=== PATIENT | male | born 1995 | race Caucasian/White ===

== ENCOUNTER 2019-04-28 12:32 | Observation (INO) | payer OTHER ==
[~2019-04-28 12:32] MED LIST: ROCURONIUM BROMIDE INJ 50 MG/5 ML VIAL IV ONE; SUCCINYLCHOLINE CHLORIDE INJ 200 MG/10 ML VIAL ONE
[2019-04-28 13:10] LABS: APPEARANCE,URINE CLEAR; BILIRUBIN,URINE NEGATIVE (NEGATIVE); COLOR,URINE YELLOW; GLUCOSE, URINE NEGATIVE (NEGATIVE); KETONES,URINE NEGATIVE (NEGATIVE); LEUKOCYTE ESTERASE,URINE NEGATIVE (NEGATIVE); NITRITE,URINE NEGATIVE (NEGATIVE); PROTEIN,URINE NEGATIVE (NEGATIVE); URINE SPECIFIC GRAVITY 1.019; UROBILINOGEN,URINE NEGATIVE mg/dL (<2.0)
[2019-04-28] MEDS ORDERED: ONDANSETRON HCL INJ/PF 4 MG/2 ML SDV IV ONE (13:12)
[2019-04-28] MEDS ORDERED: FENTANYL CITRATE INJ/PF 100 MCG/2 ML AMPUL IV ONE (13:12)
--- NOTE | 2019-04-28 13:14 | ER Document Report ---
ED Medical Screen (RME) - General Chief Complaint: Flank Pain Stated Complaint: RIGHT SIDE PAIN Time Seen by Provider: 04/28/19 13:07 Notes: Patient is a 23-year-old male presents to the emergency department for right lower abdominal pain. Patient voices he has had intermittent pain for the last 4 days. Patient's denying any fever but is admitting to some generalized nausea. Patient voices he also feels as he may be constipated. Patient states he has no dysuria but does have urinary frequency. GENERAL: Alert, interacts well. No acute distress. ABDOMEN: Soft, generalized tenderness noted right lower quadrant, suprapubic, left lower quadrant. Non-distended. Bowel sounds present in all 4 quadrants. BACK: no cervical, thoracic, lumbar midline tenderness. No saddle anesthesia, normal distal neurovascular exam. No CVA tenderness noted bilaterally. I have greeted and performed a rapid initial assessment of this patient. A comprehensive ED assessment and evaluation of the patient, analysis of test results and completion of the medical decision making process will be conducted by additional ED providers. I have specifically instructed the patient or family members with the patient to immediately return to any nursing staff should anything change in the patient's condition or with their chief complaint. This medical record was dictated with voice recognizing software. There may be grammatical, syntax errors that are unintended. TRAVEL OUTSIDE OF THE [place] IN LAST 30 DAYS: No - Related Data Allergies/Adverse Reactions: No Known Allergies Allergy (Verified 04/28/19 13:05) Past Medical History - Social History Chew tobacco use (# tins/day): No Frequency of alcohol use: Occasional Drug Abuse: None Physical Exam - Vital signs Vitals: Temp Pulse BP Pulse Ox 98.6 F 57 L 129/65 H 99 04/28/19 12:36 04/28/19 12:36 04/28/19 12:36 04/28/19 12:36 Course - Vital Signs Vital signs: Temp Pulse Resp BP Pulse Ox 98.6 F 57 L 129/65 H 99 04/28/19 12:36 04/28/19 12:36 04/28/19 12:36 04/28/19 12:36
[2019-04-28 13:51] LABS: ABSOLUTE EOSINOPHILS # (AUTO) 0.2 10^3/uL (0.0-0.6); ABSOLUTE LYMPHOCYTES (AUTO) 1.4 10^3/uL (0.5-4.7); ABSOLUTE MONOCYTES (AUTO) 1.5 10^3/uL (0.1-1.4); BASOPHILS % (AUTO) 0.3 % (0-2); EOSINOPHILS % (AUTO) 1.2 % (0-6); HEMATOCRIT 40.7 % (37.9-51.0); HEMOGLOBIN 13.8 g/dL (13.5-17.0); LYMPHOCYTES % (AUTO) 10.1 % (13-45); MEAN CORPUSCULAR HEMOGLOBIN 30.2 pg (27.0-33.4); MEAN CORPUSCULAR VOLUME 89 fl (80-97); MONOCYTES % (AUTO) 10.5 % (3-13); PLATELET COUNT 239 10^3/uL (150-450); RED BLOOD COUNT 4.57 10^6/uL (4.35-5.55); RED CELL DISTRIBUTION WIDTH 13.3 % (11.5-14.0); SEGMENTED NEUTROPHILS % (AUTO) 77.9 % (42-78); TOTAL CELLS COUNTED % (AUTO) 100 %; WHITE BLOOD COUNT 14.2 10^3/uL (4.0-10.5)
[2019-04-28 14:05] LABS: ALBUMIN 4.6 g/dL (3.5-5.0); ALKALINE PHOSPHATASE 63 U/L (38-126); ANION GAP 10 (5-19); ASPARTATE AMINO TRANSFERASE 65 U/L (17-59); BILIRUBIN,DIRECT 0.1 mg/dL (0.0-0.4); BILIRUBIN,TOTAL 0.6 mg/dL (0.2-1.3); BLOOD UREA NITROGEN 22 mg/dL (7-20); CALCIUM 9.9 mg/dL (8.4-10.2); CARBON DIOXIDE 28 mmol/L (22-30); CHLORIDE 102 mmol/L (98-107); GLUCOSE 92 mg/dL (75-110); POTASSIUM 4.3 mmol/L (3.6-5.0); TOTAL PROTEIN 7.8 g/dL (6.3-8.2)
[2019-04-28] MEDS ORDERED: NORMAL SALINE 1000 ML 1,000 ML IV ONE (14:05)
--- NOTE | 2019-04-28 15:15 | RADIOLOGY REPORT (SQ) ---
EXAM DESCRIPTION: CT ABD/PELVIS WITH IV ONLY COMPLETED DATE/TIME: 04/28/2019 2:42 pm REASON FOR STUDY: RLQ pain COMPARISON: None. TECHNIQUE: CT scan of the abdomen and pelvis performed using helical scanning technique with dynamic intravenous contrast injection. No oral contrast. Images reviewed with lung, soft tissue, and bone windows. Reconstructed coronal and sagittal MPR images reviewed. Delayed images for evaluation of the urinary system also acquired. All images stored on PACS. All CT scanners at this facility use dose modulation, iterative reconstruction, and/or weight based d osing when appropriate to reduce radiation dose to as low as reasonably achievable (ALARA). [facility]: Dose Right [facility]: CareDose [facility]: Dose Right [facility]: Teradose 4D [facility]: PlaceSpeak CONTRAST TYPE AND DOSE: contrast/concentration: Isovue 350.00 mg/ml; Total Contrast Delivered: 100.0 ml; Total Saline Delivered: 45.0 ml RENAL FUNCTION: BUN 22 creatinine 0.96 RADIATION DOSE: CT Rad equipment meets quality standard of care and radiation dose reduction techniq ues were employed. CTDIvol: 11.0 - 14.9 mGy. DLP: 1434 mGy-cm.. LIMITATIONS: None. FINDINGS: LOWER CHEST: No significant findings. No nodules or infiltrates. LIVER: Normal size. No masses. No dilated ducts. SPLEEN: Normal size. No focal lesions. PANCREAS: No masses. No significant calcifications. No adjacent inflammation or peripancreatic fluid collections. Pancreatic duct not dilated. GALLBLADDER: No identified stones by CT criteria. No inflammatory changes to suggest cholecystitis. ADRENAL GLANDS: No significant masses or asymmetry. RIGHT KIDNEY AND URETER: No solid masses. No significant calcifications. No hydronephrosis or hyd roureter. LEFT KIDNEY AND URETER: No solid masses. No significant calcifications. No hydronephrosis or hydr oureter. AORTA AND VESSELS: No aneurysm. No dissection. Renal arteries, SMA, celiac without stenosis. RETROPERITONEUM: No retroperitoneal adenopathy, hemorrhage or masses. BOWEL AND PERITONEAL CAVITY: No masses or inflammatory changes. No free fluid or peritoneal masses. APPENDIX: The appendix is thickened to a maximum of 21 mm. There is periappendiceal stranding. No a bscess is seen. PELVIS: No mass. No free fluid. Normal bladder. ABDOMINAL WALL: No masses. No hernias. BONES: No significant or acute findings. OTHER: No other significant finding. IMPRESSION: Appendicitis. No abscess is seen. TECHNICAL DOCUMENTATION: JOB ID: [id number] Quality ID # [id number]: Final reports with documentation of one or more dose reduction techniques (e.g., Au tomated exposure control, adjustment of the mA and/or kV according to patient size, use of iterative reconstruction technique) 2010 [employer]- All Rights Reserved Reading location - IP/workstation name: [email or web address]
[2019-04-28 15:37] LABS: CHLAM PCR NOT DETECTED (NOT DETECT)
[2019-04-28] MEDS ORDERED: CEFOXITIN INJ 2 GM VIAL IV ONE (15:37)
--- NOTE | 2019-04-28 15:43 | ER Document Report ---
Entered by ALIX MONTES SCRIBE 04/28/19 1520 Acting as scribe for:JEANNA CASTRO IV, MD ED GI/ - General Chief Complaint: Lower Abdominal Pain Stated Complaint: RIGHT SIDE PAIN Time Seen by Provider: 04/28/19 13:07 Mode of Arrival: Ambulatory Information source: Patient Notes: This 23-year-old male patient presents to the emergency department today with complaints of a 4-day history of right lower quadrant abdominal pain. Patient states that when the pain first began it was a mild discomfort and he "kind of just felt like he needed to pass gas or poop", describing the pain as a pressure. Patient states that he went to see a client finance analyst who asked him if he had made any recent dietary changes. Patient states he told him that he had recently changed to a keto diet and the client finance analyst attributed his symptoms to the diet change. Patient states this morning when he woke up his abdominal pain was much more severe, still feeling like a pressure sensation with very sharp pains as well. Patient states the best way he can describe the pain as if "he got kick ed in the gut". Of note, the last food/drink that the patient consumed was at 10:30am this morning, stating he ate ham and eggs. Pertinent PMHx/PSHx: none PCP: [employer] TRAVEL OUTSIDE OF THE [place] IN LAST 30 DAYS: No - Related Data Allergies/Adverse Reactions: No Known Allergies Allergy (Verified 04/28/19 13:05) Past Medical History - General Information source: Patient - Social History Smoking Status: Never Smoker Cigarette use (# per day): No Chew tobacco use (# tins/day): No Frequency of alcohol use: Occasional Drug Abuse: None Occupation: [employer] [place] Lives with: Spouse/Significant other Family History: Reviewed & Not Pertinent Patient has suicidal ideation: No Patient has homicidal ideation: No Review of Systems - Review of Systems Constitutional: No symptoms reported EENT: No symptoms reported Cardiovascular: No symptoms reported Respiratory: No symptoms reported Gastrointestinal: See HPI, Abdominal pain, Nausea. denies: Vomiting Genitourinary: See HPI, Frequency Male Genitourinary: No symptoms reported Musculoskeletal: No symptoms reported Skin: No symptoms reported Hematologic/Lymphatic: No symptoms reported Neurological/Psychological: No symptoms reported -: Yes All other systems reviewed and negative Physical Exam - Vital signs Vitals: Temp Pulse BP Pulse Ox 98.6 F 57 L 129/65 H 99 04/28/19 12:36 04/28/19 12:36 04/28/19 12:36 04/28/19 12:36 - Notes Notes: Physical Exam: General: Alert, appears uncomfortable. HEENT: Normocephalic. Atraumatic. PERRL. Extraocular movements intact. Or opharynx clear. Neck: Supple. Non-tender. Respiratory: No respiratory distress. Clear and equal breath sounds bilaterally. Cardiovascular: Regular rate and rhythm. Abdominal: Right lower quadrant tenderness with palpation. Palpation of the left lower quadrant causes discomfort in the right lower quadrant. Positive rebound tenderness. No distension. Decreased Bowel Sounds. Back: No gross abnormalities. Extremities: Moves all four extremities. Upper extremities: Normal inspection. Normal ROM. Lower extremities: Normal inspection. No edema. Normal ROM. Neurological: Normal cognition. AAOx4. Normal speech. Psychological: Normal affect. Normal Mood. Skin: Warm. Dry. Normal color. Course - Vital Signs Vital signs: Temp Pulse Resp BP Pulse Ox 98.4 F 80 16 139/52 H 100 04/29/19 00:30 04/29/19 00:30 04/29/19 00:30 04/29/19 00:30 04/29/19 00:30 - Laboratory Result Diagrams: 04/28/19 13:38 04/28/19 13:38 Laboratory results interpreted by me: 04/28/19 04/28/19 13:38 13:38 WBC 14.2 H Lymph % (Auto) 10.1 L Absolute Neuts (auto) 11.0 H Absolute Monos (auto) 1.5 H BUN 22 H AST 65 H - Diagnostic Test Radiology reviewed: Reports reviewed Discharge - Discharge Clinical Impression: Appendicitis Qualifiers: Appendicitis type: acute appendicitis Acute appendicitis type: unspecified acute appendicitis type Qualified Code(s): K35.80 - Unspecified acute appendicitis Disposition: ADMITTED OBSERVATION Admitting Provider: Surgicalist Unit Admitted: Surgical Floor I personally performed the services described in the documentation, reviewed and edited the documentation which was dictated to the scribe in my presence, and it accurately records my words and actions.
[2019-04-28] MEDS ORDERED: BUPIVACAINE HCL 0.25 % INJ/PF (2.5 MG/1 ML) 30 ML VIAL ONE (16:11)
[2019-04-28] MEDS ORDERED: ONDANSETRON HCL INJ/PF 4 MG/2 ML SDV ONE ×2 (16:12→18:52)
[2019-04-28] MEDS ORDERED: FENTANYL CITRATE INJ/PF 100 MCG/2 ML AMPUL ONE ×2 (16:12→18:52)
[2019-04-28] MEDS ORDERED: DEXAMETHASONE SOD PHOSPHATE INJ 4 MG/1 ML VIAL ONE (16:12)
[2019-04-28] MEDS ORDERED: MIDAZOLAM 2 MG/2 ML INJ ONE (16:12)
[2019-04-28] MEDS ORDERED: MORPHINE SULFATE 10 MG/ML INJ ONE (16:12)
[2019-04-28] MEDS ORDERED: PROPOFOL INJ 200 MG/20 ML VIAL IV ONE (16:13)
--- NOTE | 2019-04-28 16:16 | PDOC H&P ---
History of Present Illness Patient complains of: Abdominal pain History of Present Illness: CHANNING DANIELLE is a 23 year old male in otherwise excellent health up until about 5 days ago when he began to have a headache followed by some abdominal discomfort. Over the ensuing days the pain became localized in the right lower quadrant with now pain migrating toward the umbilicus. The pain has become worse markedly increasing in pain in the last 24 hours. Patient has had some nausea. No emesis. No fevers or chills. Some loose bowel movements. No blood per rectum. Patient notes that the pain is worsened with any type of jostling motion. He denies any prior history of this sort of abdominal pain. No recent unexplained weight loss. He had been feeling well up until a few days ago. Past Medical History Medical History: None Cardiac Medical History: Reports: None Pulmonary Medical History: Reports: None EENT Medical History: Reports: None Neurological Medical History: Reports: None Endocrine Medical History: Reports: None Renal/ Medical History: Reports: None Malignancy Medical History: Reports: None GI Medical History: Reports: None Musculoskeltal Medical History: Reports: None Skin Medical History: Reports: None Psychiatric Medical History: Reports: None Traumatic Medical History: Reports: None Hematology: Reports: None Infectious Medical History: Reports: None Past Surgical History Past Surgical History: Reports: None Social History Lives with: Spouse/Significant other Smoking Status: Never Smoker Electronic Cigarette use?: No Frequency of Alcohol Use: Occasional Hx Recreational Drug Use: No Family History Parental Family History Reviewed: Yes - Father with thyroid cancer. Mother with hypertension Children Family History Reviewed: Yes Sibling(s) Family History Reviewed.: Yes Medication/Allergy Home Medications: No Home Medications 04/28/19 Allergies/Adverse Reactions: No Known Allergies Allergy (Verified 04/28/19 13:05) Review of Systems All systems: reviewed and no additional remarkable complaints except as stated Constitutional: PRESENT: as per HPI Gastrointestinal: PRESENT: as per HPI Physical Exam Vital Signs: Temp Pulse Resp BP Pulse Ox 98.7 F 60 16 128/65 H 99 04/28/19 16:05 04/28/19 16:05 04/28/19 16:05 04/28/19 16:05 04/28/19 16:05 Intake & Output 04/27/19 04/28/19 04/29/19 06:59 06:59 06:59 Intake Total 1000 Balance 1000 Weight 108.2 kg General appearance: PRESENT: no acute distress, cooperative Eye exam: PRESENT: conjunctiva pink Respiratory exam: PRESENT: clear to auscultation barry Cardiovascular exam: PRESENT: RRR GI/Abdominal exam: PRESENT: other - Soft, nondistended, marked tenderness to palpation in the right lower quadrant with guarding and rebound. Tenderness also in the mid lower abdomen. Positive Rovsing sign. Extremities exam: PRESENT: other - No swelling and no tenderness Neurological exam: PRESENT: alert, awake Psychiatric exam: PRESENT: appropriate affect Skin exam: PRESENT: warm Results Laboratory Results: 04/28/19 13:38 04/28/19 13:38 04/28/19 04/28/19 04/28/19 12:45 13:38 13:38 WBC 14.2 H RBC 4.57 Hgb 13.8 Hct 40.7 MCV 89 MCH 30.2 MCHC 34.0 RDW 13.3 Plt Count 239 Seg Neutrophils % 77.9 Sodium 139.7 Potassium 4.3 Chloride 102 Carbon Dioxide 28 Anion Gap 10 BUN 22 H Creatinine 0.96 Est GFR ( Amer) > 60 Glucose 92 Calcium 9.9 Total Bilirubin 0.6 AST 65 H Alkaline Phosphatase 63 Total Protein 7.8 Albumin 4.6 Lipase 32.4 Urine Color YELLOW Urine Appearance CLEAR Urine pH 5.0 Ur Specific [place] 1.019 Urine Protein NEGATIVE Urine Glucose (UA) NEGATIVE Urine Ketones NEGATIVE Urine Blood NEGATIVE Urine Nitrite NEGATIVE Ur Leukocyte Esterase NEGATIVE Urine WBC (Auto) 0 Urine RBC (Auto) 1 Impressions: Abdomen/Pelvis CT 04/28/19 13:53 IMPRESSION: Appendicitis. No abscess is seen. Assessment & Plan - Diagnosis (1) Appendicitis Qualifiers: Appendicitis type: acute appendicitis Acute appendicitis type: with localized peritonitis Is this a current diagnosis for this admission?: Yes Plan: Likely a perforated in light of his several day of symptoms and peritoneal signs in the right lower quadrant in the mid lower abdomen. We will plan laparoscopic appendectomy possible open appendectomy. I have discussed with the patient the risk and benefits of the surgery including risk of conversion to a larger incision, infection, bleeding, adjacent structure injury, mistaken diagnosis, stump leak, postoperative abscess. Patient understands and agrees to proceed.
[2019-04-28] MEDS ORDERED: PROMETHAZINE HCL INJ 25 MG/1 ML VIAL IV PRN ×2 (17:03)
[2019-04-28] MEDS ORDERED: MEPERIDINE HCL/PF INJ 25 MG/1 ML DISP.SYRIN IV PRN (17:03)
[2019-04-28] MEDS ORDERED: FENTANYL CITRATE INJ/PF 100 MCG/2 ML AMPUL IV PRN ×3 (17:03)
[2019-04-28] MEDS ORDERED: MORPHINE SULFATE 10 MG/ML INJ IV PRN ×2 (17:03→18:42)
[2019-04-28] MEDS ORDERED: DIPHENHYDRAMINE HCL 50 MG/ML VIAL IV PRN (17:03)
[2019-04-28] MEDS ORDERED: NORMAL SALINE 1000 ML 1,000 ML IV PRN (18:35)
[2019-04-28] MEDS ORDERED: DEXTROSE 50%-WATER 25 GM/50 ML DISP.SYRIN IV PRN ×2 (18:42)
[2019-04-28] MEDS ORDERED: DEXTROSE 40% GEL 15 GM TUBE PO PRN ×2 (18:42)
[2019-04-28] MEDS ORDERED: GLUCAGON,HUMAN RECOMB 1 MG INJ SUBCUT PRN (18:42)
[2019-04-28] MEDS ORDERED: SCOPOLAMINE HYDROBROMIDE 1.5 MG PATCH.TD72 ONE (19:09)
--- NOTE | 2019-04-28 20:38 | Operative Report ---
Operative Report DATE OF SURGERY: 04/28/19 PREOPERATIVE DIAGNOSIS: Appendicitis POSTOPERATIVE DIAGNOSIS: Gangrenous appendicitis OPERATION: Laparoscopic appendectomy SURGEON: THAD CLARK ANESTHESIA: GA TISSUE REMOVED OR ALTERED: Appendix COMPLICATIONS: None ESTIMATED BLOOD LOSS: 10 cc INTRAOPERATIVE FINDINGS: Gangrenous but not perforated appendix walled off by terminal ileum and partial retrocecal location. PROCEDURE: Informed consent was obtained. Patient was brought to the operating room placed on the operating room table in the supine position. After satisfactory induction of general anesthesia patient's abdomen was prepped and draped in usual sterile fashion. A supraumbilical midline incision was made dissection carried down through the fascia and the peritoneal cavity was entered. [place] trocar was inserted and pneumoperitoneum produced with good patient toleration. A 5 mm trocar was placed in the right lateral abdomen lateral to the rectus above the level of the umbilicus. Another 5 mm trocar was placed in the left lateral abdomen lateral to the rectus below the level of the umbilicus. Patient was placed in a Trendelenburg position with the right side up. The terminal ileum was plastered to the right lower quadrant. The terminal ileum was mobilized off of the its inflammatory adhesions. The cecum and proximal half of the right colon had to be mobilized to visualize the appendix. Revealing underlying markedly inflamed gangrenous appearing appendix. A third 5 mm trocar had to be inserted in the left midabdomen to assist in obtaining exposure. I could not grasp the gangrenous appendix for fear of rupturing it thus adding to difficulty in exposure. With combination of blunt and sharp dissection through inflamed tissue, the base of the appendix was visualized and it appeared pink and healthy. A plane was created between the mesoappendix and the appendix at the base of the appendix. Using a blue load of the Endo DAVID stapling device the appendix was taken flush with the cecum. The stump closure appeared secure and healthy. The mesoappendix was taken using a LigaSure device taking great care to avoid injury to the surrounding small and large bowel.. Hemostasis appeared good. The appendix was placed in an Endobag and removed through the [place] trocar site fascial defect. The operative field was irrigated and irrigant aspirated out. The cecum and the terminal ileum was closely examined at the end of the case and there was no evidence of injury. No unipolar electrocautery was used during the case. The only energy device used during the case was the LigaSure. All trochars were removed under the direct vision of the laparoscope to ensure hemostasis. The [place] trocar site fascial defect was closed with interrupted Vicryl sutures. All skin incisions were closed with subcuticular interrupted Monocryl sutures. Marcaine was injected at the operative sites. Patient tolerated procedure well with no apparent complications and was taken to the recovery area in stable condition.
[2019-04-28] MEDS ORDERED: CEFOXITIN INJ 1 GM VIAL ONE (22:13)
[2019-04-28] MEDS: CEFOXITIN 1 GM/D5W RTU 1 GM/50 ML RTUPB IV SCH (22:30)
--- NOTE | 2019-04-28 23:55 | PDOC PROGRESS REPORT ---
Subjective Progress Note for:: 04/28/19 Subjective:: Feels better. Reason For Visit: GANGRENOUS APPENDICITIS Physical Exam Vital Signs: Temp Pulse Resp BP Pulse Ox 98.4 F 84 15 133/50 H 99 04/28/19 23:30 04/28/19 23:30 04/28/19 23:30 04/28/19 23:30 04/28/19 23:30 Intake & Output 04/27/19 04/28/19 04/29/19 06:59 06:59 06:59 Intake Total 2500 Output Total 635 Balance 1865 Weight 107.8 kg General appearance: PRESENT: no acute distress, cooperative Respiratory exam: PRESENT: clear to auscultation barry Cardiovascular exam: PRESENT: RRR GI/Abdominal exam: PRESENT: other - Soft, nondistended, very mild right lower quadrant abdominal tenderness much improved from preoperative exam Results Laboratory Results: 04/28/19 13:38 04/28/19 13:38 04/28/19 04/28/19 04/28/19 12:45 13:38 13:38 WBC 14.2 H RBC 4.57 Hgb 13.8 Hct 40.7 MCV 89 MCH 30.2 MCHC 34.0 RDW 13.3 Plt Count 239 Seg Neutrophils % 77.9 Sodium 139.7 Potassium 4.3 Chloride 102 Carbon Dioxide 28 Anion Gap 10 BUN 22 H Creatinine 0.96 Est GFR ( Amer) > 60 Glucose 92 Calcium 9.9 Total Bilirubin 0.6 AST 65 H Alkaline Phosphatase 63 Total Protein 7.8 Albumin 4.6 Lipase 32.4 Urine Color YELLOW Urine Appearance CLEAR Urine pH 5.0 Ur Specific [place] 1.019 Urine Protein NEGATIVE Urine Glucose (UA) NEGATIVE Urine Ketones NEGATIVE Urine Blood NEGATIVE Urine Nitrite NEGATIVE Ur Leukocyte Esterase NEGATIVE Urine WBC (Auto) 0 Urine RBC (Auto) 1 Impressions: Abdomen/Pelvis CT 04/28/19 13:53 IMPRESSION: Appendicitis. No abscess is seen. Assessment & Plan - Diagnosis (1) Appendicitis Qualifiers: Appendicitis type: acute appendicitis Acute appendicitis type: with localized peritonitis Is this a current diagnosis for this admission?: Yes Plan: Status post laparoscopic appendectomy. Patient looks good. Hold off diet until morning. - Time Time Spent with patient: Less than 15 minutes
[2019-04-29] MEDS ORDERED: ONDANSETRON HCL INJ/PF 4 MG/2 ML SDV IV PRN (00:02)
[2019-04-29 04:38] LABS: HEMOGLOBIN 12.9 g/dL (13.5-17.0); MEAN CORPUSCULAR VOLUME 88 fl (80-97); PLATELET COUNT 239 10^3/uL (150-450); RED BLOOD COUNT 4.31 10^6/uL (4.35-5.55); RED CELL DISTRIBUTION WIDTH 13.3 % (11.5-14.0); WHITE BLOOD COUNT 16.3 10^3/uL (4.0-10.5)
[2019-04-29 04:43] LABS: ANION GAP 12 (5-19); BLOOD UREA NITROGEN 19 mg/dL (7-20); CALCIUM 9.3 mg/dL (8.4-10.2); CARBON DIOXIDE 25 mmol/L (22-30); CHLORIDE 102 mmol/L (98-107); GLUCOSE 111 mg/dL (75-110); POTASSIUM 4.8 mmol/L (3.6-5.0)
[2019-04-29] MEDS ORDERED: SCOPOLAMINE HYDROBROMIDE 1.5 MG PATCH.TD72 TD ONE (05:15)
--- NOTE | 2019-04-29 08:59 | PDOC PROGRESS REPORT ---
Subjective Progress Note for:: 04/29/19 Subjective:: Feels much better today. Had nausea last night but not nauseated this morning. Patient is hungry Reason For Visit: GANGRENOUS APPENDICITIS Physical Exam Vital Signs: Temp Pulse Resp BP Pulse Ox 98.4 F 80 16 139/52 H 100 04/29/19 00:30 04/29/19 00:30 04/29/19 00:30 04/29/19 00:30 04/29/19 00:30 Intake & Output 04/28/19 04/29/19 04/30/19 06:59 06:59 06:59 Intake Total 2500 Output Total 1335 Balance 1165 Weight 106.7 kg 106.7 kg General appearance: PRESENT: no acute distress, cooperative Respiratory exam: PRESENT: clear to auscultation barry Cardiovascular exam: PRESENT: RRR GI/Abdominal exam: PRESENT: other - Soft, nondistended, minimal right lower quadrant tenderness. Extremities exam: PRESENT: other - No swelling and no tenderness Results Laboratory Results: 04/29/19 03:41 04/29/19 03:41 04/28/19 04/28/19 04/28/19 12:45 13:38 13:38 WBC 14.2 H RBC 4.57 Hgb 13.8 Hct 40.7 MCV 89 MCH 30.2 MCHC 34.0 RDW 13.3 Plt Count 239 Seg Neutrophils % 77.9 Sodium 139.7 Potassium 4.3 Chloride 102 Carbon Dioxide 28 Anion Gap 10 BUN 22 H Creatinine 0.96 Est GFR ( Amer) > 60 Glucose 92 Calcium 9.9 Total Bilirubin 0.6 AST 65 H Alkaline Phosphatase 63 Total Protein 7.8 Albumin 4.6 Lipase 32.4 Urine Color YELLOW Urine Appearance CLEAR Urine pH 5.0 Ur Specific [place] 1.019 Urine Protein NEGATIVE Urine Glucose (UA) NEGATIVE Urine Ketones NEGATIVE Urine Blood NEGATIVE Urine Nitrite NEGATIVE Ur Leukocyte Esterase NEGATIVE Urine WBC (Auto) 0 Urine RBC (Auto) 1 04/29/19 04/29/19 03:41 03:41 WBC 16.3 H RBC 4.31 L Hgb 12.9 L Hct 38.0 MCV 88 MCH 30.0 MCHC 34.0 RDW 13.3 Plt Count 239 Seg Neutrophils % Sodium 139.1 Potassium 4.8 Chloride 102 Carbon Dioxide 25 Anion Gap 12 BUN 19 Creatinine 0.93 Est GFR ( Amer) > 60 Glucose 111 H Calcium 9.3 Total Bilirubin AST Alkaline Phosphatase Total Protein Albumin Lipase Urine Color Urine Appearance Urine pH Ur Specific [place] Urine Protein Urine Glucose (UA) Urine Ketones Urine Blood Urine Nitrite Ur Leukocyte Esterase Urine WBC (Auto) Urine RBC (Auto) Impressions: Abdomen/Pelvis CT 04/28/19 13:53 IMPRESSION: Appendicitis. No abscess is seen. Assessment & Plan - Diagnosis (1) Appendicitis Qualifiers: Appendicitis type: acute appendicitis Acute appendicitis type: unspecified acute appendicitis type Qualified Code(s): K35.80 - Unspecified acute a ppendicitis Is this a current diagnosis for this admission?: Yes Plan: Status post laparoscopic appendectomy for gangrenous appendicitis. We will plan to keep the patient in the hospital for 1 more day of IV antibiotics. We will start clear liquid diet. Likely discharge patient home tomorrow. - Time Time Spent with patient: Less than 15 minutes
[2019-04-29] MEDS: CEFOXITIN 1 GM/D5W RTU 1 GM/50 ML RTUPB IV SCH ×2 (10:16→21:18)
--- NOTE | 2019-04-30 08:21 | PDOC PROGRESS REPORT ---
Subjective Progress Note for:: 04/30/19 Subjective:: Feels well. Tolerating a diet well. Minimal abdominal pain. Reason For Visit: GANGRENOUS APPENDICITIS Physical Exam Vital Signs: Temp Pulse Resp BP Pulse Ox 98.1 F 48 L 16 116/39 L 99 04/29/19 23:32 04/29/19 23:32 04/29/19 23:32 04/29/19 23:32 04/29/19 23:32 Intake & Output 04/29/19 04/30/19 05/01/19 06:59 06:59 06:59 Intake Total 2500 1320 Output Total 1335 400 Balance 1165 920 Weight 106.7 kg 105.6 kg General appearance: PRESENT: no acute distress, cooperative Respiratory exam: PRESENT: clear to auscultation barry Cardiovascular exam: PRESENT: RRR GI/Abdominal exam: PRESENT: other - Soft, nondistended, minimal tenderness to palpation. Wounds clean dry and intact with no erythema. Extremities exam: PRESENT: other - No swelling and no tenderness Results Laboratory Results: 04/29/19 03:41 04/29/19 03:41 Impressions: Abdomen/Pelvis CT 04/28/19 13:53 IMPRESSION: Appendicitis. No abscess is seen. Assessment & Plan - Diagnosis (1) Appendicitis Qualifiers: Appendicitis type: acute appendicitis Acute appendicitis type: unspecified acute appendicitis type Qualified Code(s): K35.80 - Unspecified acute appendicitis Is this a current diagnosis for this admission?: Yes Plan: Status post laparoscopic appendectomy. Patient looks very good. Will discharge patient home. - Time Time Spent with patient: Less than 15 minutes
--- NOTE | 2019-04-30 08:29 | PDOC DISCHARGE SUMMARY ---
General - Admit/Disc Date/PCP Admission Date/Primary Care Provider: 04/28/19 16:25 Discharge Date: 04/30/19 - Discharge Diagnosis Final Diagnosis: Gangrenous appendicitis - Assessment Summary: Patient underwent laparoscopic appendectomy. He had postoperative nausea but it gradually resolved and patient was tolerating a solid diet at the time of discharge. His exam looks good with minimal tenderness. Patient has not been discharged home in good condition. He is to stay active but avoid strenuous activity. He is to avoid physical training such as weight lifting or sit ups for 4 weeks. He is to follow-up at [facility] in 2 weeks. He is to call for any problems such as fever, progressively worsening pain, redness at his wound site. - Additional Information Resuscitation Status: Full Code Discharge Activity: Activity As Tolerated - Stay active but avoid strenuous activity. No weight lifting and no sit ups, No Lifting Over 10 Pounds Referrals: [facility] [Provider Group] (04/28 S/P [facility] APPY) Prescriptions: Oxycodone HCl/Acetaminophen [Percocet 5-325 mg Tablet] 1 tab PO ASDIR PRN #8 tablet PRN Reason: Home Medications: Oxycodone HCl/Acetaminophen [Percocet 5-325 mg Tablet] 1 tab PO ASDIR PRN #8 tablet 04/30/19 History of Present Illiness History of Present Illness: CHANNING DANIELLE is a 23 year old male in otherwise excellent health up until about 5 days ago when he began to have a headache followed by some abdominal discomfort. Over the ensuing days the pain became localized in the right lower quadrant with now pain migrating toward the umbilicus. The pain has become worse markedly increasing in pain in the last 24 hours. Patient has had some nausea. No emesis. No fevers or chills. Some loose bowel movements. No blood per rectum. Patient notes that the pain is worsened with any type of jostling motion. He denies any prior history of this sort of abdominal pain. No recent unexplained weight loss. He had been feeling well up until a few days ago. Physical Exam Vital Signs: Temp Pulse Resp BP Pulse Ox 98.1 F 48 L 16 116/39 L 99 04/29/19 23:32 04/29/19 23:32 04/29/19 23:32 04/29/19 23:32 04/29/19 23:32 Intake & Output 04/29/19 04/30/19 05/01/19 06:59 06:59 06:59 Intake Total 2099 1320 Output Total 1335 400 Balance 1165 920 Weight 106.7 kg 105.6 kg Results Laboratory Results: WBC 16.3 10^3/uL (4.0-10.5) H 04/29/19 03:41 RBC 4.31 10^6/uL (4.35-5.55) L 04/29/19 03:41 Hgb 12.9 g/dL (13.5-17.0) L 04/29/19 03:41 Hct 38.0 % (37.9-51.0) 04/29/19 03:41 MCV 88 fl (80-97) 04/29/19 03:41 MCH 30.0 pg (27.0-33.4) 04/29/19 03:41 MCHC 34.0 g/dL (32.0-36.0) 04/29/19 03:41 RDW 13.3 % (11.5-14.0) 04/29/19 03:41 Plt Count 239 10^3/uL (150-450) 04/29/19 03:41 Lymph % (Auto) 10.1 % (13-45) L 04/28/19 13:38 Tift % (Auto) 10.5 % (3-13) 04/28/19 13:38 Eos % (Auto) 1.2 % (0-6) 04/28/19 13:38 Baso % (Auto) 0.3 % (0-2) 04/28/19 13:38 Absolute Neuts (auto) 11.0 10^3/uL (1.7-8.2) H 04/28/19 13:38 Absolute Lymphs (auto) 1.4 10^3/uL (0.5-4.7) 04/28/19 13:38 Absolute Monos (auto) 1.5 10^3/uL (0.1-1.4) H 04/28/19 13:38 Absolute Eos (auto) 0.2 10^3/uL (0.0-0.6) 04/28/19 13:38 Absolute Basos (auto) 0.0 10^3/uL (0.0-0.2) 04/28/19 13:38 Seg Neutrophils % 77.9 % (42-78) 04/28/19 13:38 Sodium 139.1 mmol/L (137-145) 04/29/19 03:41 Potassium 4.8 mmol/L (3.6-5.0) 04/29/19 03:41 Chloride 102 mmol/L (98-107) 04/29/19 03:41 Carbon Dioxide 25 mmol/L (22-30) 04/29/19 03:41 Anion Gap 12 (5-19) 04/29/19 03:41 BUN 19 mg/dL (7-20) 04/29/19 03:41 Creatinine 0.93 mg/dL (0.52-1.25) 04/29/19 03:41 Est GFR ( Amer) > 60 (>60) 04/29/19 03:41 Est GFR (MDRD) Non-Af > 60 (>60) 04/29/19 03:41 Glucose 111 mg/dL (75-110) H 04/29/19 03:41 Calcium 9.3 mg/dL (8.4-10.2) 04/29/19 03:41 Total Bilirubin 0.6 mg/dL (0.2-1.3) 04/28/19 13:38 Direct Bilirubin 0.1 mg/dL (0.0-0.4) 04/28/19 13:38 Neonat Total Bilirubin Not Reportable 04/28/19 13:38 Neonat Direct Bilirubin Not Reportable 04/28/19 13:38 Neonat Indirect Bili Not Reportable 04/28/19 13:38 AST 65 U/L (17-59) H 04/28/19 13:38 ALT 142 U/L (<50) 04/28/19 13:38 Alkaline Phosphatase 63 U/L (38-126) 04/28/19 13:38 Total Protein 7.8 g/dL (6.3-8.2) 04/28/19 13:38 Albumin 4.6 g/dL (3.5-5.0) 04/28/19 13:38 Lipase 32.4 U/L (23-300) 04/28/19 13:38 Urine Color YELLOW 04/28/19 12:45 Urine Appearance CLEAR 04/28/19 12:45 Urine pH 5.0 (5.0-9.0) 04/28/19 12:45 Ur Specific [place] 1.019 04/28/19 12:45 Urine Protein NEGATIVE mg/dL (NEGATIVE) 04/28/19 12:45 Urine Glucose (UA) NEGATIVE mg/dL (NEGATIVE) 04/28/19 12:45 Urine Ketones NEGATIVE mg/dL (NEGATIVE) 04/28/19 12:45 Urine Blood NEGATIVE (NEGATIVE) 04/28/19 12:45 Urine Nitrite NEGATIVE (NEGATIVE) 04/28/19 12:45 Urine Bilirubin NEGATIVE (NEGATIVE) 04/28/19 12:45 Urine Urobilinogen NEGATIVE mg/dL (<2.0) 04/28/19 12:45 Ur Leukocyte Esterase NEGATIVE (NEGATIVE) 04/28/19 12:45 Urine WBC (Auto) 0 /HPF 04/28/19 12:45 Urine RBC (Auto) 1 /HPF 04/28/19 12:45 Urine Mucus (Auto) RARE /LPF 04/28/19 12:45 Urine Ascorbic Acid NEGATIVE (NEGATIVE) 04/28/19 12:45 Chlamydia DNA (PCR) NOT DETECTED (NOT DETECT) 04/28/19 13:50 N.gonorrhoeae DNA (PCR) NOT DETECTED (NOT DETECT) 04/28/19 13:50 Impressions: Abdomen/Pelvis CT 04/28/19 13:53 IMPRESSION: Appendicitis. No abscess is seen.
[2019-04-30] MEDS: CEFOXITIN 1 GM/D5W RTU 1 GM/50 ML RTUPB IV SCH (09:32)
[2019-04-30 09:37] VITALS: BP 141/54
[2019-05-01] MEDS ORDERED: SCOPOLAMINE HYDROBROMIDE 1.5 MG PATCH.TD72 TD SCH (19:00)
== END 2019-04-30 10:45 | disposition home or self-care (01) ==
LOC: ER 12:32 → EH 16:25 → 5 19:35
PROVIDERS: ATTEND Surgery
DX: K35.31 Acute appendicitis with localized peritonitis and gangrene, without perforation (principal); R35.0 Frequency of micturition
CPT/HCPCS: 99285; 96361; 96374; 96375; 36415 ×2; 83690; 85025; 85027; 80048; 80053; 81001; 87491; 87591; 88304 ×2; 74177; 00840; 44970; G0378 ×3; J2250; J1100; J0694 ×3; J3010; J2270 ×2; J3490; J2405 ×2; J7030; J2704; 840

== ENCOUNTER 2020-01-08 17:13 | Emergency (ER) | payer OTHER ==
[2020-01-08 17:20] VITALS: BP 130/72
--- NOTE | 2020-01-08 17:46 | ER Document Report ---
ED General - General Chief Complaint: Sinus Congestion Stated Complaint: SINUS PRESSURE/DRAINAGE Notes: Patient is a 24-year-old white male with no significant past medical history presents to the emergency department chief complaint of sinus pressure, nasal congestion and postnasal drainage that began about a week ago. He states it started off as a sore throat the first day. He states that then resolved by day 2 and progressively became a "sinus infection". He states that he is coughing up the drainage from the back of his throat that is a yellow color. States he was concerned given the discoloration of the mucus so he came for evaluation. He denies any fever, chills, night sweats, facial pain, dental pain, foul taste in the mouth, recent travel, known sick contacts or anybody exposed to him that suspicious for COVID-19. TRAVEL OUTSIDE OF THE [place] IN LAST 30 DAYS: No - Related Data Allergies/Adverse Reactions: No Known Allergies Allergy (Verified 01/08/20 17:32) Past Medical History - Social History Smoking Status: Never Smoker Chew tobacco use (# tins/day): No Frequency of alcohol use: Occasional Drug Abuse: None Family History: Reviewed & Not Pertinent Patient has homicidal ideation: No Psychiatric Medical History: Denies: Hx Depression Past Surgical History: Reports: Hx Appendectomy Review of Systems - Review of Systems Constitutional: denies: Fever EENT: Nose congestion, Sinus pressure, Throat pain Cardiovascular: denies: Chest pain Respiratory: Cough. denies: Short of breath Gastrointestinal: denies: Abdominal pain, Diarrhea, Nausea, Vomiting Genitourinary: denies: Pain Male Genitourinary: No symptoms reported Musculoskeletal: No symptoms reported Skin: denies: Change in color Hematologic/Lymphatic: denies: Easy bleeding Neurological/Psychological: denies: Headaches Physical Exam - Vital signs Vitals: Temp Pulse Resp BP Pulse Ox 98.6 F 59 L 20 130/72 H 98 01/08/20 17:19 01/08/20 17:19 01/08/20 17:19 01/08/20 17:19 01/08/20 17:19 - General General appearance: Appears well, Alert In distress: None - HEENT Head: Normocephalic, Atraumatic Eyes: Normal Conjunctiva: Normal Extraocular movements intact: Yes Eyelashes: Normal Pupils: PERRL Ears: Normal External canal: Normal Tympanic membrane: Bulging, Other - TMs pearly renae bilaterally but bulging. No: Injected, Perforation Sinus: Redness, Swelling Nasal: Other - Nasal turbinate edema and erythema bilaterally Mouth/Lips: Normal Mucous membranes: Normal Pharynx: Other - Postnasal drainage of the posterior pharynx with slight injection. No edema or tonsillar hypertrophy. Patent airway. Handling secretions well. No sublingual or submental swelling. No trismus. Neck: Normal, Supple. No: Lymphadenopathy - Respiratory Respiratory status: No respiratory distress Chest status: Nontender Breath sounds: Normal Chest palpation: Normal - Cardiovascular Rhythm: Regular Heart sounds: Normal auscultation - Neurological Neuro grossly intact: Yes Cognition: Normal Orientation: AAOx4 - Psychological Associated symptoms: Normal affect, Normal mood - Skin Skin Temperature: Warm Skin Moisture: Dry Skin Color: Normal Course - Re-evaluation Re-evalutation: 01/08/20 17:47 History and physical consistent with an acute sinusitis. Will treat with Claritin-D and Flonase. Counseled the patient regarding water intake with clear fluids for hydration. Advised to return here or any ER immediately with any new, persistent or worsening symptoms. He verbalized understood and agreed. - Vital Signs Vital signs: Temp Pulse Resp BP Pulse Ox 98.6 F 59 L 20 130/72 H 98 01/08/20 17:19 01/08/20 17:19 01/08/20 17:19 01/08/20 17:19 01/08/20 17:19 Discharge - Discharge Clinical Impression: Sinusitis Qualifiers: Sinusitis location: unspecified location Chronicity: acute Recurrence: not specified as recurrent Qualified Code(s): J01.90 - Acute sinusitis, unspecified Condition: Stable Disposition: HOME, SELF-CARE Instructions: Sinusitis (OM) Additional Instructions: Follow-up with your regular doctor in 2 to 3 days for reevaluation. Return here or any ER immediately with any new, persistent or worsening symptoms. Prescriptions: Fluticasone Propionate [Flonase Nasal [place] 50 Mcg/[place] 16 gm] 1 spray NASL Q12 #1 inhaler Loratadine/Pseudoephedrine [Loratadine-D 24Hr Tablet] 1 each PO DAILY #30 tab.er.24h Referrals: [facility] [NO LOCAL MD] - Follow up as needed
== END 2020-01-08 17:54 | disposition home or self-care (01) ==
LOC: ER 17:13
DX: J01.90 Acute sinusitis, unspecified (principal); R09.81 Nasal congestion; R09.82 Postnasal drip; R05 Cough
CPT/HCPCS: 99283